=== PATIENT | female | born 1980 | race Caucasian/White ===

== ENCOUNTER → 2024-02-26 09:08 | Outpatient (CLI) | payer OTHER, SELFPAY ==
--- NOTE | 2024-02-26 09:11 | DI.ECHO.S_ITS ---
[facility]---------+ [facility] +---------+ : : [address] : : : : [id number] : : : : Phone: [phone]---------+ Echocardiogram Report + + :Name: AMANUEL AMAYA Study Date: 02/26/2024 Height: 66 in : :[facility] ReadingLocation: Weight: 140 lb : : Gender: Female BSA: 1.7 m2 : :: 1980 Age: 43 yrs BP: 140/93 mmHg: :Reason For Study: HEART FAILURE : :Ordering Physician: PREM, : :LIBBY Performed By: Mirian Castle : :Referring: LIBBY AMARO : + + Interpretation Summary The patient was in sinus tachycardia with heart rates between 100-108 bpm during the exam. The ejection fraction is estimated to be 60-65%. Diastolic function could not be accurately assessed due to tachycardia. The right ventricle is normal in size and function. There is mild tricuspid regurgitation. Pulmonary artery pressures cannot be estimated because of the lack of a measurable TR jet velocity but the IVC suggests a CVP of around 3 mmHg. Procedure: A two-dimensional transthoracic echocardiogram with color flow and Doppler was performed. The study quality was technically adequate. There is no prior echocardiogram noted for this patient. The patient was in sinus tachycardia with heart rates between 100-108 bpm during the exam. Left Ventricle: The left ventricle is normal in size and wall thickness. The ejection fraction is estimated to be 60-65%. Diastolic function could not be accurately assessed due to tachycardia. Right Ventricle: The right ventricle is normal in size and function. Atria: The left atrial size is normal. Right atrial size is normal. Mitral Valve: The mitral valve is normal in structure and function. There is trace mitral regurgitation. Aortic Valve: The aortic valve is trileaflet. The aortic valve opens well. There is no aortic valve stenosis. No aortic regurgitation is present. Tricuspid Valve: The tricuspid valve is normal in structure and function. There is mild tricuspid regurgitation. Pulmonary artery pressures cannot be estimated because of the lack of a measurable TR jet velocity but the IVC suggests a CVP of around 3 mmHg. Pulmonic Valve: The pulmonic valve leaflets are thin and pliable; valve motion is normal. There is no pulmonic valvular regurgitation. Great Vessels: The aortic root is normal size. The dimensions of the ascending aorta are normal. The IVC is of normal diameter and collapses greater than 50% with a sniff. This suggests a low right atrial pressure of 3 mm Hg. Pericardium/ Pleura There is no pericardial effusion. There is no pleural effusion. MMode/2D Measurements & Calculations LVIDd: 3.6 cm LVOT diam: 2.0 cm LVIDs: 2.4 cm Ao root diam: 2.3 cm FS: 33.8 % asc Aorta Diam: 2.5 cm IVSd: 0.79 cm Ao Arch Diam (Prox Trans): 2.2 cm LVPWd: 0.97 cm LV kearney. diameter/BSA (cm/m^2): 2.1 LV sys. diameter/BSA (cm/m^2): 1.4 LA A2 area: 19.4 cm2 RA long axis: 4.2 cm LA A4 area: 16.3 cm2 RA area: 11.9 cm2 LA length (vol): 5.0 cm RA vol: 28.5 ml LA vol: 53.0 ml RA : 16.6 ml/m2 LA vol index: 30.8 ml/m2 IVC diam: 1.3 cm RVD1 (basal): 3.3 cm RVD2 (mid): 2.6 cm TAPSE: 1.6 cm Doppler Measurements & Calculations Ao V2 max: 141.1 cm/sec LVOT Max Eliu: 97.1 cm/sec Ao V2 mean: 98.6 cm/sec LV V1 max P.8 mmHg Ao max P.0 mmHg LV V1 VTI: 18.3 cm Ao mean P.3 mmHg CHRISTINA(I,D): 2.4 cm2 Ao V2 VTI: 23.8 cm CHRISTINA(V,D): 2.2 cm2 sev ratio: 0.77 CHRISTINA indexed to BSA (cm^2/m^2): 1.4 MV E max eliu: 120.7 cm/sec TR max eliu: 259.7 cm/sec MV A max eliu: 1.5 cm/sec TR max P.0 mmHg MV E/A: 81.1 PA V2 max: 104.6 cm/sec Med Peak E' Eliu: 11.9 cm/sec PA V2 mean: 73.2 cm/sec E/E' med: 10.1 PA mean P.4 mmHg Lat Peak E' Eliu: 12.8 cm/sec PA pr(Accel): 32.8 mmHg E/E' lat: 9.4 E/e' average: 9.8 MV dec time: 0.17 sec MVA(VTI): 2.5 cm2 Pulm A Revs Eliu: 46.2 cm/sec MV V2 mean: 84.1 cm/sec Pulm A Revs Dur: 0.16 sec MV mean P.6 mmHg MV V2 VTI: 23.1 cm SV(LVOT): 57.5 ml Reading Physician:11:21 PM
== END ==
DX: I50.9 Heart failure, unspecified (principal); I07.1 Rheumatic tricuspid insufficiency
CPT/HCPCS: 93306

== ENCOUNTER 2024-06-16 10:15 | Outpatient (RCR) | payer OTHER, SELFPAY | END 2024-06-16 12:15 | LOC: CAR 10:15 | PROVIDERS: Referring Provider Internal Medicine Cardiovascular Disease; Visit Provider Internal Medicine Cardiovascular Disease | DX: Z94.1 Heart transplant status (principal) | CPT/HCPCS: 93798 ==